=== PATIENT | male | born 1980 | race Caucasian/White ===

== ENCOUNTER → 2016-11-27 | Outpatient (CLI) | payer OTHER | LOC: COL.RAD 13:36 | DX: S73.192A Other sprain of left hip, initial encounter (principal) | CPT/HCPCS: A9585; J3301; Q9967 ==

== ENCOUNTER → 2017-01-20 | Outpatient (CLI) | payer OTHER | LOC: ZCOL.LAB 14:14 | DX: Z01.812 Encounter for preprocedural laboratory examination (principal); Z86.14 Personal history of Methicillin resistant Staphylococcus aureus infection ==

== ENCOUNTER 2018-02-02 21:02 | Emergency (ER) | payer OTHER ==
[~2018-02-02] VITALS: Ht 172.7 cm; Wt 77.3 kg
[2018-02-02 21:06] VITALS: BP 148/85; TEMP 98.2
[2018-02-02] MEDS ORDERED: TESSALON P100 MG/CAP PO (22:24)
[2018-02-02] MEDS ORDERED: PREDNISONE20 MG PO (22:24)
[2018-02-02] MEDS ORDERED: ZITHROMAX 250M250 MG PO (22:24)
[2018-02-02 23:07] VITALS: PULSE 86
== END 2018-02-02 23:09 | disposition home or self-care (01) ==
LOC: COL.ER 21:02
DX: J20.9 Acute bronchitis, unspecified (principal); J18.1 Lobar pneumonia, unspecified organism; G43.909 Migraine, unspecified, not intractable, without status migrainosus; Z98.890 Other specified postprocedural states
CPT/HCPCS: J7512

== ENCOUNTER → 2019-10-26 | Outpatient (CLI) | payer OTHER ==
[~2019-10-26] MED LIST: PREDNISONE20 MG PO; TESSALON P100 MG/CAP PO; ZITHROMAX 250M250 MG PO
== END ==
LOC: COL.CARD 10-25 10:00
DX: F07.81 Postconcussional syndrome (principal); G43.109 Migraine with aura, not intractable, without status migrainosus; R68.89 Other general symptoms and signs

== ENCOUNTER → 2020-01-11 | Outpatient (CLI) | payer OTHER | LOC: COL.RAD 08:45 | DX: G43.109 Migraine with aura, not intractable, without status migrainosus (principal); E55.9 Vitamin D deficiency, unspecified ==